=== PATIENT | male | born 1995 | race Caucasian/White ===

== ENCOUNTER 2019-08-25 18:49 | Emergency (ER) | payer MEDICAID ==
[2019-08-25 19:13] VITALS: BP 124/67
[2019-08-25] MEDS ORDERED: PENI500T2 PO (20:23)
[2019-08-25] MEDS ORDERED: IBUP-1984 PO (20:23)
[2019-08-26] MEDS ORDERED: AMOX-580 PO (11:45)
== END 2019-08-25 20:45 | disposition home or self-care (01) ==
LOC: ER 18:50
DX: K02.9 Dental caries, unspecified (principal); M54.6 Pain in thoracic spine
CPT/HCPCS: 99283

== ENCOUNTER 2019-08-26 09:17 | Emergency (ER) | payer MEDICAID ==
[~2019-08-26] VITALS: Ht 188 cm; Wt 61.9 kg
[~2019-08-26 09:17] MED LIST: IBUP-1984 PO; PENI500T2 PO
[2019-08-26 09:19] VITALS: BP 110/67
[2019-08-26] MEDS ORDERED: AMOX-580 PO (11:45)
== END 2019-08-26 12:01 | disposition home or self-care (01) ==
LOC: ER 09:17
DX: K04.7 Periapical abscess without sinus (principal); K02.9 Dental caries, unspecified; Z79.2 Long term (current) use of antibiotics; Z79.899 Other long term (current) drug therapy
CPT/HCPCS: 99283

== ENCOUNTER 2024-06-03 08:21 | Emergency (ER) | payer MEDICAID, OTHER ==
[~2024-06-03] VITALS: Ht 188 cm; Wt 55.0 kg
[2024-06-03] MEDS ORDERED: HYDR-3972 PO (09:19)
[2024-06-03] MEDS ORDERED: AMOX-419 PO (09:19)
[2024-06-03 09:32] VITALS: BP 128/73; PULSE 63; RESP 14; TEMP 98; O2SAT 0
== END 2024-06-03 09:36 | disposition home or self-care (01) ==
LOC: ER 08:22
DX: K08.89 Other specified disorders of teeth and supporting structures (principal)
CPT/HCPCS: 99283